=== PATIENT | male | born 1955 | race Two or more races ===

== ENCOUNTER 2017-07-01 00:53 | Emergency (ER) | payer MEDICAID, OTHER ==
[~2017-07-01] VITALS: Ht 170.2 cm; Wt 86.0 kg
[2017-07-01] MEDS ORDERED: ASPIRIN 81MG TABLET PO ONE (02:15)
[2017-07-01 02:51] LABS: BASOPHILS % 0.6 % (0.0-2.0); EOSINOPHILS % 3.1 % (0.0-5.0); HEMATOCRIT. 40.8 % (42.0-52.0); LYMPHOCYTES % 35.1 % (20.0-50.0); MEAN CORPUSCULAR HEMOGLOBIN 20.5 pg (28.0-32.0); MEAN CORPUSCULAR VOLUME 64.6 fL (80.0-94.0); MONOCYTES % 7.6 % (2.0-8.0); NEUTROPHILS % 53.6 % (40.0-76.0); PLATELET 240 x1000/uL (130-400); RED BLOOD CELL COUNT 6.32 mill/uL (4.7-6.1); RED CELL DISTRIBUTION WIDTH 16.8 % (11.6-14.6)
[2017-07-01 02:55] LABS: PROTHROMBIN TIME 10.6 sec (9.4-11.6)
[2017-07-01 02:57] LABS: CHLORIDE 106 mEq/L (98-107)
[2017-07-01 03:00] VITALS: BP 149/74
[2017-07-01 03:03] LABS: PLATELET ESTIMATE NORMAL
[2017-07-01 03:07] LABS: ETHANOL BLOOD < 10 mg/dL
== END 2017-07-01 03:31 | disposition left against medical advice (07) ==
LOC: ER 00:53 → CANBEDREQ 06:23
DX: R07.89 Other chest pain (principal); I10 Essential (primary) hypertension; N28.9 Disorder of kidney and ureter, unspecified; Z87.19 Personal history of other diseases of the digestive system
CPT/HCPCS: 36415; 71045; 80053; 83690; 83880; 84484; 85025; 85610; 93005; 99285; G0482